=== PATIENT | female | born 1965 | race Caucasian/White ===

== ENCOUNTER 2017-08-05 20:40 | Emergency (ER) | payer OTHER ==
[~2017-08-05] VITALS: Ht 160 cm; Wt 90.0 kg
[2017-08-05] MEDS ORDERED: DULO60CA44 MT (21:16)
[2017-08-05] MEDS ORDERED: OMEP40CA34 MT (21:16)
[2017-08-05] MEDS ORDERED: FOLI-43 MT (21:22)
[2017-08-05] MEDS ORDERED: METH2.5T MT (21:22)
[2017-08-05] MEDS ORDERED: RANI150T7 MT (21:22)
[2017-08-05] MEDS ORDERED: [UNRECOGNIZED DRUG - CODE] PO (21:22)
[2017-08-05] MEDS ORDERED: PILO5TAB17 MT (21:22)
[2017-08-05] MEDS ORDERED: HYDR200T35 MT (21:22)
[2017-08-05] MEDS ORDERED: BUPR150T3 MT (21:22)
[2017-08-05] MEDS ORDERED: DOXE50CA4 MT (21:22)
[2017-08-05 21:57] LABS: CLARITY URINE CLOUDY (CLEAR); COLOR URINE YELLOW (YELLOW); KETONES URINE NEGATIVE (NEGATIVE); LEUKOCYTE ESTERASE URINE 3+ (NEGATIVE); NITRITE URINE NEGATIVE (NEGATIVE); OCCULT BLOOD URINE NEGATIVE (NEGATIVE); PROTEIN URINE NEGATIVE (NEGATIVE); SPECIFIC GRAVITY URINE 1.016 (1.005-1.030); UROBILINOGEN URINE 0.2 E.U./dL (0.2-1.0)
[2017-08-05 22:00] LABS: BASOPHILS % 0.5 % (0.0-2.0); EOSINOPHILS % 1.9 % (0.0-5.0); HEMATOCRIT. 42.5 % (36.0-48.0); HEMOGLOBIN. 14.2 g/dL (12.0-16.0); MEAN CORPUSCULAR HEMOGLOBIN 31.5 pg (28.0-32.0); MEAN CORPUSCULAR VOLUME 94.4 fL (81.0-99.0); MEAN PLATELET VOLUME 9.7 fl (7.4-10.4); MONOCYTES % 7.9 % (2.0-8.0); NEUTROPHILS % 60.7 % (40.0-76.0); PLATELET 254 x1000/uL (130-400); RED BLOOD CELL COUNT 4.51 mill/uL (4.2-5.4); RED CELL DISTRIBUTION WIDTH 14.6 % (11.6-14.6)
[2017-08-05] MEDS ORDERED: METHOCARBAMOL 500MG TABLET PO ONE (23:15)
[2017-08-05] MEDS ORDERED: MORPHINE SULFATE 10 MG/ML CPJ IM ONE (23:15)
[2017-08-05] MEDS ORDERED: METHYLPREDNISOLONE SOD SUCC 125 MG/2 ML VIAL IM ONE (23:30)
[2017-08-06] MEDS ORDERED: MORPHINE SULFATE 4 MG/ML CPJ (NOT FOR IM USE) IV STA (00:25)
[2017-08-06] MEDS ORDERED: ONDANSETRON HCL 4MG/2ML VIAL IV STA (00:25)
[2017-08-06] MEDS ORDERED: SODIUM CHLORIDE 0.9% 1,000 ML IV ONE (00:25)
[2017-08-06 00:41] LABS: CHLORIDE 106 mEq/L (98-107)
[2017-08-06 00:43] LABS: HCG SCREEN NEGATIVE
[2017-08-06 02:42] VITALS: BP 110/62
[2017-08-06] MEDS ORDERED: METHYLPREDNISOLONE SOD SUCC 125 MG/2 ML VIAL IM SCH (06:00)
== END 2017-08-06 02:56 | disposition home or self-care (01) ==
LOC: ER 20:40
DX: S39.012A Strain of muscle, fascia and tendon of lower back, initial encounter (principal); N39.0 Urinary tract infection, site not specified; M32.9 Systemic lupus erythematosus, unspecified; F41.9 Anxiety disorder, unspecified; F32.9 Major depressive disorder, single episode, unspecified; M79.7 Fibromyalgia; Z90.710 Acquired absence of both cervix and uterus; Z90.49 Acquired absence of other specified parts of digestive tract; Z88.5 Allergy status to narcotic agent; Z88.8 Allergy status to other drugs, medicaments and biological substances; X50.1XXA Overexertion from prolonged static or awkward postures, initial encounter; Y93.89 Activity, other specified; Y92.018 Other place in single-family (private) house as the place of occurrence of the external cause
CPT/HCPCS: 36415; 80053; 81003; 83690; 84703; 85025; 87086; 96361; 96372; 96374; 96375; 99284; J2270; J2405; J2930; J7030; Z7610

== ENCOUNTER 2018-02-06 23:40 | Inpatient (IN) | payer OTHER ==
[~2018-02-06] VITALS: Ht 167.6 cm; Wt 114.3 kg
[~2018-02-06 23:40] MED LIST: BUPR150T3 MT; DOXE50CA4 MT; DULO60CA44 MT; FOLI-43 MT; HYDR200T35 MT; METH2.5T MT; OMEP40CA34 MT; PILO5TAB17 MT; RANI150T7 MT; [UNRECOGNIZED DRUG - CODE] PO
[2018-02-07] VITALS (8 sets, daily range): BP systolic 66–106; BP diastolic 38–67
[2018-02-07] MEDS ORDERED: SODIUM CHLORIDE 0.9% 1,000 ML IV ONE (01:25)
[2018-02-07] MEDS ORDERED: ONDANSETRON HCL 4MG/2ML INJ IV STA (01:25)
[2018-02-07 01:48] LABS: BASOPHILS % 0.7 % (0.0-2.0); EOSINOPHILS % 2.3 % (0.0-5.0); HEMOGLOBIN. 14.1 g/dL (12.0-16.0); LYMPHOCYTES % 36.4 % (20.0-50.0); MEAN CORPUSCULAR HEMOGLOBIN 32.1 pg (28.0-32.0); MEAN CORPUSCULAR VOLUME 95.7 fL (81.0-99.0); MEAN PLATELET VOLUME 9.5 fl (7.4-10.4); MONOCYTES % 9.6 % (2.0-8.0); PLATELET 228 x1000/uL (130-400); RED BLOOD CELL COUNT 4.39 mill/uL (4.2-5.4)
[2018-02-07 01:55] LABS: PROTHROMBIN TIME 10.4 sec (9.1-11.1)
[2018-02-07] MEDS ORDERED: MORPHINE SULFATE 4 MG/ML CPJ (NOT FOR IM USE) IV ONE (02:00)
[2018-02-07 02:02] LABS: HCG SCREEN NEGATIVE
[2018-02-07 02:07] LABS: CHLORIDE 104 mEq/L (98-107)
[2018-02-07 03:03] LABS: CLARITY URINE CLEAR (CLEAR); COLOR URINE YELLOW (YELLOW); KETONES URINE NEGATIVE (NEGATIVE); LEUKOCYTE ESTERASE URINE 1+ (NEGATIVE); NITRITE URINE NEGATIVE (NEGATIVE); OCCULT BLOOD URINE NEGATIVE (NEGATIVE); PH URINE 6.5 (4.5-8.0); PROTEIN URINE NEGATIVE (NEGATIVE); SPECIFIC GRAVITY URINE 1.016 (1.005-1.030); UROBILINOGEN URINE 0.2 E.U./dL (0.2-1.0)
[2018-02-07] MEDS ORDERED: NITROGLYCERIN OINT 1GM/INCH UDPKT TD ONE (03:45)
[2018-02-07 04:21] LABS: D-DIMER 0.39 mg/L FEU (<0.50); PARTIAL THROMBOPLASTIN TIME 29.6 sec (23.4-31.0); PROTHROMBIN TIME 10.3 sec (9.1-11.1)
[2018-02-07] MEDS ORDERED: GABA-531 MT (09:29)
[2018-02-07] MEDS ORDERED: HYDR200T35 MT (09:34)
[2018-02-07] MEDS ORDERED: ERGO2000 PO (09:37)
[2018-02-07] MEDS ORDERED: MAGNESIUM/ALUMINUM HYDROXIDE/SIMETHICONE 30ML UDC PO PRN (10:15)
[2018-02-07] MEDS ORDERED: CLONIDINE 0.1MG TABLET PO PRN (10:15)
[2018-02-07] MEDS ORDERED: ONDANSETRON HCL 4MG/2ML INJ IV PRN ×2 (10:15→15:30)
[2018-02-07] MEDS ORDERED: ENOXAPARIN 40MG/0.4ML SYR SUBCUT SCH ×2 (10:15→15:30)
[2018-02-07] MEDS ORDERED: GUAIFENESIN 200MG/10ML SUGAR FREE UDC PO PRN (10:15)
[2018-02-07] MEDS ORDERED: DOCUSATE SODIUM 100MG CAPSULE PO PRN (10:15)
[2018-02-07] MEDS ORDERED: NA PHOS,M-B/NA PHOS,DI-BA ENEMA 118ML PR PRN (10:15)
[2018-02-07] MEDS ORDERED: IPRATROPIUM/ALBUTEROL 0.5-3(2.5)MG/3ML NEB INH PRN (10:15)
[2018-02-07] MEDS ORDERED: NITROGLYCERIN 0.4MG TABLET SL SL PRN (10:15)
[2018-02-07] MEDS: FAMOTIDINE 20MG TABLET PO SCH ×2 (11:27→20:29)
[2018-02-07] MEDS: TRAMADOL 50MG TABLET PO PRN (11:27)
[2018-02-07] MEDS: ASPIRIN 325MG EC TABLET PO SCH (11:28)
[2018-02-07] MEDS: PROPRANOLOL HCL 10MG TABLET PO SCH ×2 (14:00→21:10)
[2018-02-07] MEDS: SUCRALFATE 1 G/10 ML UDC PO SCH ×3 (14:52→20:29)
[2018-02-07] MEDS ORDERED: SODIUM CHLORIDE 0.9% 1,000 ML IV SCH (15:22)
[2018-02-07] MEDS ORDERED: ACETAMINOPHEN 325MG TABLET PO PRN (15:30)
[2018-02-07] MEDS ORDERED: LORAZEPAM 2MG/ML CPJ IV PRN (15:30)
[2018-02-07] MEDS: SODIUM CHLORIDE 0.9% 1,000 ML IV SCH (16:24)
[2018-02-07 16:36] LABS: CREATINE KINASE 83 IU/L (26-192)
[2018-02-07] MEDS: ACETAMINOPHEN 325MG TABLET PO PRN ×2 (18:12→22:53)
[2018-02-07] MEDS ORDERED: LEVOFLOXACIN 500MG PREMIX 100 ML IV SCH (18:30)
[2018-02-07] MEDS ORDERED: ZOLPIDEM TARTRATE 5MG TABLET PO PRN (21:00)
[2018-02-07] MEDS ORDERED: SODIUM CHLORIDE 0.9% 500 ML IV ONE (21:00)
[2018-02-07 22:06] LABS: *AMPHETAMINES SCREEN URINE NEGATIVE (NEGATIVE); *BARBITURATES SCREEN URINE NEGATIVE (NEGATIVE); *BENZODIAZEPINES SCREEN URINE NEGATIVE (NEGATIVE)
[2018-02-07 22:07] LABS: *COCAINE SCREEN URINE NEGATIVE (NEGATIVE); CANNABINOID URINE SCREEN NEGATIVE (NEGATIVE); METHADONE URINE SCREEN NEGATIVE (NEGATIVE); OPIATES URINE SCREEN PRESUMTIVE POSITIVE (NEGATIVE); PHENCYCLIDINE URINE SCREEN NEGATIVE (NEGATIVE)
[2018-02-08 00:05] VITALS: BP 103/57
[2018-02-08 00:10] LABS: CREATINE KINASE 87 IU/L (26-192); CREATINE KINASE MB FRACTION 1.1 ng/mL (0.5-3.6)
[2018-02-08] MEDS: SODIUM CHLORIDE 0.9% 1,000 ML IV SCH (02:27)
[2018-02-08 04:00] VITALS: BP 98/47
[2018-02-08] MEDS: TRAMADOL 50MG TABLET PO PRN (05:05)
[2018-02-08] MEDS: PROPRANOLOL HCL 10MG TABLET PO SCH (05:06)
[2018-02-08 08:00] VITALS: BP 100/58
[2018-02-08] MEDS: ASPIRIN 325MG EC TABLET PO SCH (08:26)
[2018-02-08] MEDS: SUCRALFATE 1 G/10 ML UDC PO SCH (08:26)
[2018-02-08] MEDS: FAMOTIDINE 20MG TABLET PO SCH (08:26)
[2018-02-08] MEDS: ACETAMINOPHEN 325MG TABLET PO PRN (08:27)
[2018-02-08 11:57] LABS: *AMPHETAMINES SCREEN URINE NEGATIVE (NEGATIVE); *BARBITURATES SCREEN URINE NEGATIVE (NEGATIVE); *BENZODIAZEPINES SCREEN URINE NEGATIVE (NEGATIVE); *COCAINE SCREEN URINE NEGATIVE (NEGATIVE)
[2018-02-08 11:58] LABS: CANNABINOID URINE SCREEN NEGATIVE (NEGATIVE); METHADONE URINE SCREEN NEGATIVE (NEGATIVE); OPIATES URINE SCREEN PRESUMTIVE POSITIVE (NEGATIVE); PHENCYCLIDINE URINE SCREEN NEGATIVE (NEGATIVE)
[2018-02-08 12:00] VITALS: BP 101/53
[2018-02-08 12:12] VITALS: BP 101/53
== END 2018-02-08 13:02 | disposition home or self-care (01) | DRG 463 ==
LOC: ER 23:40 → 7WST 02-07 04:35 → ENRESERV 02-07 06:59
PROVIDERS: ADMIT Internal Medicine; ATTEND Internal Medicine
DX: N39.0 Urinary tract infection, site not specified (principal); M32.9 Systemic lupus erythematosus, unspecified; R07.89 Other chest pain; M35.00 Sjogren syndrome, unspecified; F15.10 Other stimulant abuse, uncomplicated; K21.9 Gastro-esophageal reflux disease without esophagitis; M79.7 Fibromyalgia; F41.9 Anxiety disorder, unspecified; F32.9 Major depressive disorder, single episode, unspecified; Z79.82 Long term (current) use of aspirin; Z90.710 Acquired absence of both cervix and uterus; Z88.5 Allergy status to narcotic agent; Z88.8 Allergy status to other drugs, medicaments and biological substances; Z79.899 Other long term (current) drug therapy
CPT/HCPCS: 36415; 71045; 74176; 80061; 80305; 82550; 82553; 83036; 83880; 84484; 84703; 85379; 93005; 93970; 96361; 96374; 96375; 99285; J1956; J2270; J2405; J7030; J7040

== ENCOUNTER 2018-05-01 14:45 | Emergency (ER) | payer OTHER ==
[~2018-05-01] VITALS: Ht 157.5 cm; Wt 100.0 kg
[~2018-05-01 14:45] MED LIST changes: +ERGO2000 PO; +GABA-531 MT; -[UNRECOGNIZED DRUG - CODE] PO
[2018-05-01] MEDS ORDERED: PROPRANOLOL HCL 20MG TABLET PO ONE (22:15)
[2018-05-01] MEDS ORDERED: ACETAMINOPHEN 325MG TABLET PO ONE (22:15)
[2018-05-01] MEDS ORDERED: ONDANSETRON 4MG ODT PO ONE (23:15)
[2018-05-02] MEDS ORDERED: ACETAMINOPHEN WITH CODEINE 300/30MG TABLET PO ONE
[2018-05-02 00:28] VITALS: BP 120/76
== END 2018-05-02 00:28 | disposition home or self-care (01) ==
LOC: ER 17:28
DX: R00.2 Palpitations (principal); R51 Headache; Z76.0 Encounter for issue of repeat prescription; F41.9 Anxiety disorder, unspecified; F32.9 Major depressive disorder, single episode, unspecified; K21.9 Gastro-esophageal reflux disease without esophagitis; M79.7 Fibromyalgia; Z88.5 Allergy status to narcotic agent; Z88.8 Allergy status to other drugs, medicaments and biological substances; Z90.710 Acquired absence of both cervix and uterus
CPT/HCPCS: 93005; 99284; Q0162; Z7610

== ENCOUNTER 2018-07-04 21:22 | Emergency (ER) | payer OTHER ==
[~2018-07-04] VITALS: Ht 160 cm; Wt 100.0 kg
[2018-07-04] MEDS ORDERED: ONDANSETRON HCL 4MG/2ML INJ IV STA (23:38)
[2018-07-04] MEDS ORDERED: SODIUM CHLORIDE 0.9% 1,000 ML IV ONE (23:38)
[2018-07-04 23:59] LABS: HEMATOCRIT. 47.5 % (36.0-48.0); HEMOGLOBIN. 15.8 g/dL (12.0-16.0); MEAN CORPUSCULAR HEMOGLOBIN 32.5 pg (28.0-32.0); MEAN CORPUSCULAR VOLUME 97.5 fL (81.0-99.0); MEAN PLATELET VOLUME 10.9 fl (7.4-10.4); PLATELET 209 x1000/uL (130-400); RED BLOOD CELL COUNT 4.88 mill/uL (4.2-5.4)
[2018-07-05 00:06] LABS: CHLORIDE 106 mEq/L (98-107); PROTHROMBIN TIME 10.5 sec (9.1-11.1)
[2018-07-05 00:24] LABS: PLATELET ESTIMATE NORMAL
[2018-07-05] MEDS ORDERED: POTASSIUM CHLORIDE 20MEQ TABLET SR PO SCH (00:45)
[2018-07-05 01:24] LABS: COLOR URINE YELLOW (YELLOW); KETONES URINE 3+ (NEGATIVE); LEUKOCYTE ESTERASE URINE 1+ (NEGATIVE); NITRITE URINE NEGATIVE (NEGATIVE); OCCULT BLOOD URINE NEGATIVE (NEGATIVE); PH URINE 5.5 (4.5-8.0); PROTEIN URINE TRACE (NEGATIVE); SPECIFIC GRAVITY URINE 1.026 (1.005-1.030); UROBILINOGEN URINE 0.2 E.U./dL (0.2-1.0)
[2018-07-05 01:25] LABS: CLARITY URINE HAZY (CLEAR)
[2018-07-05] MEDS ORDERED: ONDANSETRON HCL 4MG/2ML INJ IV SCH (01:32)
[2018-07-05 02:39] VITALS: BP 139/69
== END 2018-07-05 02:41 | disposition home or self-care (01) ==
LOC: ER 21:22
DX: R11.10 Vomiting, unspecified (principal); R51 Headache; R19.7 Diarrhea, unspecified; F41.9 Anxiety disorder, unspecified; R00.0 Tachycardia, unspecified; Z90.49 Acquired absence of other specified parts of digestive tract; Z90.710 Acquired absence of both cervix and uterus; Z98.890 Other specified postprocedural states; Z79.899 Other long term (current) drug therapy; Z88.6 Allergy status to analgesic agent; Z88.5 Allergy status to narcotic agent; Z88.2 Allergy status to sulfonamides
CPT/HCPCS: 36415; 80053; 81003; 83605; 83690; 84484; 85025; 85610; 93005; 96361; 96374; 96376; 99284; J2405; J7030; Z7610

== ENCOUNTER 2020-04-08 22:10 | Emergency (ER) | payer OTHER ==
[~2020-04-08] VITALS: Ht 160 cm; Wt 99.0 kg
[~2020-04-08 22:10] MED LIST changes: +OMEP40CA12 MT; -OMEP40CA34 MT
[2020-04-09 01:13] LABS: HEMATOCRIT. 43.1 % (36.0-48.0); HEMOGLOBIN. 14.3 g/dL (12.0-16.0); MEAN CORPUSCULAR HEMOGLOBIN 30.9 pg (28.0-32.0); MEAN CORPUSCULAR VOLUME 93.2 fL (81.0-99.0); MEAN PLATELET VOLUME 10.5 fl (7.4-10.4); PLATELET 200 x1000/uL (130-400); RED BLOOD CELL COUNT 4.63 mill/uL (4.2-5.4); RED CELL DISTRIBUTION WIDTH 13.1 % (11.6-14.6)
[2020-04-09 01:16] LABS: CHLORIDE 110 mEq/L (98-107)
[2020-04-09] MEDS ORDERED: METOCLOPRAMIDE HCL 10MG/2ML VIAL IM ONE (02:00)
[2020-04-09] MEDS ORDERED: ACETAMINOPHEN 325MG TABLET PO ONE (02:00)
[2020-04-09] MEDS ORDERED: ONDA4TAB5 PO (02:26)
[2020-04-09 02:48] VITALS: BP 121/72
[2020-04-09 05:04] LABS: PLATELET ESTIMATE NORMAL
== END 2020-04-09 02:52 | disposition home or self-care (01) ==
LOC: ER 22:10
DX: R51.9 Headache, unspecified (principal); R07.89 Other chest pain; R41.9 Unspecified symptoms and signs involving cognitive functions and awareness
CPT/HCPCS: 36415; 80048; 84484; 85025; 93005; 96372; 99284; J2765

== ENCOUNTER 2020-09-03 00:46 | Inpatient (IN) | payer MEDICAID, OTHER ==
[~2020-09-03] VITALS: Ht 160 cm; Wt 103.4 kg
[~2020-09-03 00:46] MED LIST changes: -GABA-531 MT; +GABA-532 MT; +ONDA4TAB5 PO
[2020-09-03] MEDS ORDERED: ACETAMINOPHEN 325MG TABLET PO STA (01:14)
[2020-09-03] MEDS ORDERED: ONDANSETRON HCL 4MG/2ML INJ IV STA (01:14)
[2020-09-03] MEDS ORDERED: SODIUM CHLORIDE 0.9% 1,000 ML IV ONE (01:15)
[2020-09-03 01:29] LABS: HEMATOCRIT. 43.6 % (36.0-48.0); HEMOGLOBIN. 14.9 g/dL (12.0-16.0); MEAN CORPUSCULAR HEMOGLOBIN 31.6 pg (28.0-32.0); MEAN CORPUSCULAR VOLUME 92.6 fL (81.0-99.0); PLATELET 192 x1000/uL (130-400); RED BLOOD CELL COUNT 4.71 mill/uL (4.2-5.4); RED CELL DISTRIBUTION WIDTH 13.7 % (11.6-14.6)
[2020-09-03 01:32] LABS: CHLORIDE 112 mEq/L (98-107)
[2020-09-03 02:07] LABS: CLARITY URINE CLEAR (CLEAR); COLOR URINE YELLOW (YELLOW); KETONES URINE TRACE (NEGATIVE); LEUKOCYTE ESTERASE URINE TRACE (NEGATIVE); NITRITE URINE NEGATIVE (NEGATIVE); OCCULT BLOOD URINE NEGATIVE (NEGATIVE); PROTEIN URINE NEGATIVE (NEGATIVE); SPECIFIC GRAVITY URINE 1.024 (1.005-1.030); UROBILINOGEN URINE 0.2 E.U./dL (0.2-1.0)
[2020-09-03] MEDS ORDERED: ONDANSETRON HCL 4MG/2ML INJ IV ONE (03:00)
[2020-09-03] MEDS ORDERED: ACETAMINOPHEN 325MG TABLET PO ONE (04:15)
[2020-09-03] MEDS ORDERED: METHYLPREDNISOLONE SOD SUCC 125 MG/2 ML VIAL IV ONE (05:15)
[2020-09-03] MEDS ORDERED: CEFTRIAXONE 1 G PREMIX 50 ML IV ONE (05:45)
[2020-09-03 07:33] LABS: PLATELET ESTIMATE NORMAL
[2020-09-03] MEDS ORDERED: GUAIFENESIN 200MG/10ML SUGAR FREE UDC PO PRN (09:30)
[2020-09-03] MEDS ORDERED: METHOTREXATE SODIUM 2 . 5MG TABLET PO SCH (09:30)
[2020-09-03] MEDS ORDERED: ACETAMINOPHEN 325MG TABLET PO PRN (09:30)
[2020-09-03] MEDS ORDERED: BUPROPION HCL 150MG TABLET XL 24HR PO SCH (09:30)
[2020-09-03] MEDS ORDERED: DOCUSATE SODIUM 100MG CAPSULE PO PRN (09:30)
[2020-09-03] MEDS ORDERED: ONDANSETRON HCL 4MG/2ML INJ IV PRN (09:30)
[2020-09-03] MEDS ORDERED: MAGNESIUM/ALUMINUM HYDROXIDE/SIMETHICONE 30ML UDC PO PRN (09:30)
[2020-09-03] MEDS ORDERED: CLONIDINE 0.1MG TABLET PO PRN (09:30)
[2020-09-03] MEDS: ONDANSETRON HCL 4MG/2ML INJ IV PRN ×2 (09:40→17:55)
[2020-09-03] MEDS: SODIUM CHLORIDE 0.9% 1,000 ML IV SCH ×2 (10:32→22:57)
[2020-09-03] MEDS: HYDROXYCHLOROQUINE SULFATE 200MG TABLET PO SCH ×2 (10:32→17:55)
[2020-09-03] MEDS: PANTOPRAZOLE SODIUM 40 MG/VIAL IV SCH (10:33)
[2020-09-03] MEDS: MORPHINE SULFATE 2 MG/ML CPJ (NOT FOR IM USE) IV PRN ×2 (10:33→17:55)
[2020-09-03] MEDS: FOLIC ACID 1MG TABLET PO SCH (10:33)
[2020-09-03] MEDS: DULOXETINE HCL 60MG DR CAPSULE PO SCH (10:33)
[2020-09-03] MEDS: BUPROPION HCL 150MG SR TABLET PO SCH ×2 (10:34→17:55)
[2020-09-03] MEDS: PILOCARPINE HCL 5MG TABLET PO SCH ×2 (10:34→17:55)
[2020-09-03 12:00] VITALS: BP 107/59
[2020-09-03] MEDS ORDERED: LEFL20TA17 PO (12:33)
[2020-09-03] MEDS ORDERED: PROP120C2 PO (12:33)
[2020-09-03 12:44] VITALS: BP 107/59
[2020-09-03] MEDS ORDERED: *PATIENT'S OWN MEDICATION STORAGE XX SCH (12:45)
[2020-09-03 16:00] VITALS: BP 111/62
[2020-09-03 20:00] VITALS: BP 107/57
[2020-09-03] MEDS ORDERED: GABAPENTIN 300MG CAPSULE PO SCH (21:00)
[2020-09-04] VITALS: BP 97/57
[2020-09-04 04:00] VITALS: BP 106/60
[2020-09-04] MEDS: ONDANSETRON HCL 4MG/2ML INJ IV PRN (05:23)
[2020-09-04 06:54] LABS: BASOPHILS % 0.2 % (0.0-2.0); HEMATOCRIT. 39.2 % (36.0-48.0); HEMOGLOBIN. 13.1 g/dL (12.0-16.0); LYMPHOCYTES % 8.6 % (20.0-50.0); MEAN CORPUSCULAR HEMOGLOBIN 31.2 pg (28.0-32.0); MEAN CORPUSCULAR VOLUME 93.7 fL (81.0-99.0); MEAN PLATELET VOLUME 10.6 fl (7.4-10.4); MONOCYTES % 6.3 % (2.0-8.0); NEUTROPHILS % 84.9 % (40.0-76.0); PLATELET 192 x1000/uL (130-400); RED BLOOD CELL COUNT 4.18 mill/uL (4.2-5.4)
[2020-09-04 07:10] LABS: CHLORIDE 111 mEq/L (98-107)
[2020-09-04 08:00] VITALS: BP 104/57
[2020-09-04] MEDS ORDERED: NON FORMULARY PATIENT HOME MED PO SCH (09:00)
[2020-09-04] MEDS: DULOXETINE HCL 60MG DR CAPSULE PO SCH (09:10)
[2020-09-04] MEDS: PILOCARPINE HCL 5MG TABLET PO SCH ×2 (09:10→12:23)
[2020-09-04] MEDS: BUPROPION HCL 150MG SR TABLET PO SCH (09:10)
[2020-09-04] MEDS: FOLIC ACID 1MG TABLET PO SCH (09:10)
[2020-09-04] MEDS: HYDROXYCHLOROQUINE SULFATE 200MG TABLET PO SCH (09:10)
[2020-09-04] MEDS: PANTOPRAZOLE SODIUM 40 MG/VIAL IV SCH (09:50)
[2020-09-04 10:14] VITALS: BP 104/57
[2020-09-04 12:00] VITALS: BP 95/54
[2020-09-04] MEDS: SODIUM CHLORIDE 0.9% 1,000 ML IV SCH (12:24)
== END 2020-09-04 13:36 | disposition home or self-care (01) | DRG 54 ==
LOC: ER 00:48 → 6EST 05:40 → EDBEDREQ 05:43 → ENRESERV 10:56
PROVIDERS: ADMIT Hospitalist; ATTEND Hospitalist
DX: R51.9 Headache, unspecified (principal); E87.8 Other disorders of electrolyte and fluid balance, not elsewhere classified; M32.9 Systemic lupus erythematosus, unspecified; I10 Essential (primary) hypertension; R11.2 Nausea with vomiting, unspecified; T50.995A Adverse effect of other drugs, medicaments and biological substances, initial encounter; M79.7 Fibromyalgia; Z90.710 Acquired absence of both cervix and uterus; Z88.8 Allergy status to other drugs, medicaments and biological substances; Z88.5 Allergy status to narcotic agent; Z79.899 Other long term (current) drug therapy; Z90.49 Acquired absence of other specified parts of digestive tract; R53.1 Weakness
CPT/HCPCS: 36415; 80053; 81003; 85025; 93005; 93970; 99285; C9113; J0696; J2270; J2405; J2930; J7030

== ENCOUNTER 2021-01-24 23:40 | Emergency (ER) | payer MEDICAID ==
[~2021-01-24] VITALS: Ht 160 cm; Wt 100.0 kg
[~2021-01-24 23:40] MED LIST changes: +LEFL20TA17 PO; -OMEP40CA12 MT; +OMEP40CA20 MT; +PROP120C2 PO
[2021-01-25] MEDS ORDERED: TETANUS, DIPHTHERIA, PERTUSSIS VAC/PF 0.5ML (>10YR OLD) IM ONE (01:45)
[2021-01-25] MEDS ORDERED: HYDROCODONE/ACETAMINOPHEN 5/325MG TABLET PO ONE (01:45)
[2021-01-25] MEDS ORDERED: TOPUD MT (03:28)
[2021-01-25 04:06] VITALS: BP 138/60
== END 2021-01-25 04:07 | disposition home or self-care (01) ==
LOC: ER 23:40
DX: S61.213A Laceration without foreign body of left middle finger without damage to nail, initial encounter (principal); R51.9 Headache, unspecified; I10 Essential (primary) hypertension; M79.7 Fibromyalgia; M32.9 Systemic lupus erythematosus, unspecified; Z88.8 Allergy status to other drugs, medicaments and biological substances; Z88.6 Allergy status to analgesic agent; Z79.899 Other long term (current) drug therapy; W26.0XXA Contact with knife, initial encounter; Y93.G1 Activity, food preparation and clean up; Y92.89 Other specified places as the place of occurrence of the external cause; Y99.8 Other external cause status
CPT/HCPCS: 12001; 73130; 90471; 90715; 99283

== ENCOUNTER 2022-06-29 03:49 | Inpatient (IN) | payer MEDICAID ==
[~2022-06-29] VITALS: Ht 162.6 cm; Wt 91.6 kg
[~2022-06-29 03:49] MED LIST changes: -DULO60CA44 MT; +DULO60CA45 MT; +TOPUD MT
[2022-06-29] MEDS ORDERED: ACETAMINOPHEN 325MG TABLET PO ONE (06:15)
[2022-06-29] MEDS ORDERED: METOCLOPRAMIDE 10MG/10 ML UDC PO ONE (06:15)
[2022-06-29] MEDS ORDERED: SODIUM CHLORIDE 0.9% 1,000 ML IV ONE (06:15)
[2022-06-29 06:20] LABS: BASOPHILS % 0.6 % (0.0-2.0); EOSINOPHILS % 1.9 % (0.0-5.0); HEMATOCRIT. 44.7 % (36.0-48.0); HEMOGLOBIN. 15.1 g/dL (12.0-16.0); LYMPHOCYTES % 17.1 % (20.0-50.0); MEAN CORPUSCULAR HEMOGLOBIN 31.4 pg (28.0-32.0); MEAN CORPUSCULAR VOLUME 93.3 fL (81.0-99.0); MEAN PLATELET VOLUME 10.9 fl (7.4-10.4); MONOCYTES % 9.5 % (2.0-8.0); NEUTROPHILS % 70.9 % (40.0-76.0); PLATELET 181 x1000/uL (130-400); RED BLOOD CELL COUNT 4.79 mill/uL (4.2-5.4); RED CELL DISTRIBUTION WIDTH 13.5 % (11.6-14.6)
[2022-06-29 06:22] LABS: CHLORIDE 111 mEq/L (98-107)
[2022-06-29 08:02] LABS: PROTHROMBIN TIME 10.3 sec (9.6-11.0)
[2022-06-29 08:47] LABS: CLARITY URINE CLEAR (CLEAR); COLOR URINE YELLOW (YELLOW); KETONES URINE NEGATIVE (NEGATIVE); LEUKOCYTE ESTERASE URINE 1+ (NEGATIVE); NITRITE URINE NEGATIVE (NEGATIVE); OCCULT BLOOD URINE NEGATIVE (NEGATIVE); PROTEIN URINE NEGATIVE (NEGATIVE); SPECIFIC GRAVITY URINE 1.009 (1.005-1.030); UROBILINOGEN URINE 0.2 E.U./dL (0.2-1.0)
[2022-06-29] MEDS ORDERED: DOCUSATE SODIUM 100MG CAPSULE PO PRN (10:15)
[2022-06-29] MEDS ORDERED: CLONIDINE 0.1MG TABLET PO PRN (10:15)
[2022-06-29] MEDS ORDERED: NITROGLYCERIN 0.4MG TABLET SL SL PRN (10:15)
[2022-06-29] MEDS ORDERED: MAGNESIUM/ALUMINUM HYDROXIDE/SIMETHICONE 30ML UDC PO PRN (10:15)
[2022-06-29] MEDS ORDERED: GUAIFENESIN 200MG/10ML SUGAR FREE UDC PO PRN (10:15)
[2022-06-29] MEDS ORDERED: ACETAMINOPHEN 325MG TABLET PO PRN ×2 (10:15)
[2022-06-29] MEDS ORDERED: IPRATROPIUM/ALBUTEROL 0.5-3(2.5)MG/3ML NEB NEB PRN (10:15)
[2022-06-29] MEDS ORDERED: KETOROLAC 15MG/ML VIAL IV PRN (10:15)
[2022-06-29] MEDS ORDERED: ALBUTEROL (0.083%) 2.5MG/3ML NEB HHN PRN (10:30)
[2022-06-29] MEDS ORDERED: IPRATROPIUM BROMIDE (0.02%) 0.5MG/2.5ML NEB HHN PRN (10:30)
[2022-06-29 11:00] VITALS: BP 103/45
[2022-06-29 12:00] VITALS: BP_SYST 103; BP_SYST 115; BP_DIAS 53; BP_DIAS 55
[2022-06-29] MEDS: BUTALBITAL/ACETAMINOPHEN/CAFFEINE 50/325/40MG TABLET PO PRN ×2 (13:30→20:48)
[2022-06-29] MEDS: ONDANSETRON HCL 4MG/2ML INJ IV PRN ×2 (13:30→20:48)
[2022-06-29] MEDS: FAMOTIDINE 20MG TABLET PO SCH ×2 (13:30→20:47)
[2022-06-29] MEDS: ENOXAPARIN 40MG/0.4ML SYR SUBCUT SCH (13:31)
[2022-06-29] MEDS: CEFTRIAXONE 1GM PREMIX 50 ML IV SCH (13:32)
[2022-06-29 16:00] VITALS: BP 106/47
[2022-06-29 18:18] LABS: *AMPHETAMINES SCREEN URINE NEGATIVE (NEGATIVE); *BARBITURATES SCREEN URINE PRESUMTIVE POSITIVE (NEGATIVE); *BENZODIAZEPINES SCREEN URINE NEGATIVE (NEGATIVE); *COCAINE SCREEN URINE NEGATIVE (NEGATIVE); CANNABINOID URINE SCREEN NEGATIVE (NEGATIVE); METHADONE URINE SCREEN NEGATIVE (NEGATIVE); OPIATES URINE SCREEN NEGATIVE (NEGATIVE); PHENCYCLIDINE URINE SCREEN NEGATIVE (NEGATIVE)
[2022-06-29 18:40] LABS: ETHANOL BLOOD < 10 mg/dL; HDL CHOLESTEROL 50 mg/dL (40-59); LDL CHOLESTEROL 83 mg/dL (5-100); T4 FREE 1.01 ng/dL (0.76-1.46); TOTAL IRON BINDING CAPACITY 332 ug/dL (250-450)
[2022-06-29 18:53] LABS: VITAMIN B12 SERUM 432 pg/mL (211-911)
[2022-06-29 18:54] LABS: FOLIC ACID (FOLATE) SERUM > 20.00 ng/mL (>5.38)
[2022-06-29 20:00] VITALS: BP 126/72
[2022-06-29] MEDS ORDERED: ZOLPIDEM TARTRATE 5MG TABLET PO PRN (21:00)
[2022-06-30] VITALS: BP 117/66
[2022-06-30] MEDS: ONDANSETRON HCL 4MG/2ML INJ IV PRN ×3 (01:53→19:59)
[2022-06-30] MEDS: BUTALBITAL/ACETAMINOPHEN/CAFFEINE 50/325/40MG TABLET PO PRN ×3 (02:02→22:01)
[2022-06-30 04:00] VITALS: BP 111/59
[2022-06-30 07:04] LABS: BASOPHILS % 2.1 % (0.0-2.0); EOSINOPHILS % 3.1 % (0.0-5.0); HEMATOCRIT. 39.9 % (36.0-48.0); HEMOGLOBIN. 13.2 g/dL (12.0-16.0); LYMPHOCYTES % 38.1 % (20.0-50.0); MEAN CORPUSCULAR VOLUME 93.5 fL (81.0-99.0); MONOCYTES % 12.2 % (2.0-8.0); NEUTROPHILS % 44.5 % (40.0-76.0); PLATELET 166 x1000/uL (130-400); RED BLOOD CELL COUNT 4.26 mill/uL (4.2-5.4); RED CELL DISTRIBUTION WIDTH 13.3 % (11.6-14.6)
[2022-06-30 07:40] LABS: CHLORIDE 111 mEq/L (98-107)
[2022-06-30 08:00] VITALS: BP 107/60
[2022-06-30] MEDS: FAMOTIDINE 20MG TABLET PO SCH ×2 (08:55→20:39)
[2022-06-30] MEDS: HYDROXYCHLOROQUINE SULFATE 200MG TABLET PO SCH ×2 (11:17→20:39)
[2022-06-30] MEDS: ENOXAPARIN 40MG/0.4ML SYR SUBCUT SCH (11:20)
[2022-06-30 12:00] VITALS: BP 109/58
[2022-06-30] MEDS: CEFTRIAXONE 1GM PREMIX 50 ML IV SCH (12:57)
[2022-06-30 16:00] VITALS: BP 91/50
[2022-06-30 20:00] VITALS: BP 104/60
[2022-06-30] MEDS ORDERED: *PATIENT'S OWN MEDICATION STORAGE XX SCH (22:30)
[2022-07-01] VITALS: BP 108/59
[2022-07-01 04:00] VITALS: BP 114/62
[2022-07-01 08:00] VITALS: BP 108/60
[2022-07-01] MEDS: ONDANSETRON HCL 4MG/2ML INJ IV PRN (08:59)
[2022-07-01] MEDS: BUTALBITAL/ACETAMINOPHEN/CAFFEINE 50/325/40MG TABLET PO PRN (09:00)
[2022-07-01] MEDS: HYDROXYCHLOROQUINE SULFATE 200MG TABLET PO SCH (09:00)
[2022-07-01] MEDS: FAMOTIDINE 20MG TABLET PO SCH (09:00)
[2022-07-01] MEDS: ENOXAPARIN 40MG/0.4ML SYR SUBCUT SCH (11:00)
[2022-07-01 12:00] VITALS: BP 108/59
[2022-07-01 12:08] VITALS: BP 108/59
[2022-07-01] MEDS: CEFTRIAXONE 1GM PREMIX 50 ML IV SCH (12:30)
== END 2022-07-01 13:50 | disposition home or self-care (01) | DRG 54 ==
LOC: ER 03:49 → 6EST 09:12 → EDBEDREQ 09:15 → EDBEDREQTM 09:15
PROVIDERS: ADMIT Internal Medicine; ATTEND Internal Medicine
DX: G43.909 Migraine, unspecified, not intractable, without status migrainosus (principal); E83.51 Hypocalcemia; I10 Essential (primary) hypertension; M79.7 Fibromyalgia; N39.0 Urinary tract infection, site not specified; Z88.0 Allergy status to penicillin
CPT/HCPCS: 36415; 70551; 71045; 80053; 80061; 80305; 80320; 81003; 82607; 82746; 83036; 83540; 83550; 83605; 83735; 84100; 84145; 84439; 84443; 85025; 85651; 93005; 93970; 99285; J0696; J1650; J2405; J7030; J8597; G0480